=== PATIENT | male | born 1945 | race Caucasian/White ===

== ENCOUNTER → 2018-09-30 12:04 | Outpatient (CLI) | payer MEDICARE, OTHER, SELFPAY ==
--- NOTE | 2018-09-30 | DI.CT.S_ITS ---
PROCEDURE: CT LUMBAR SPINE WO CON INDICATIONS: Low back pain TECHNIQUE: Noncontrast 3 mm thick sections acquired from the T12 level to the sacrum. Sagittal and coronal reformats were constructed. For radiation dose reduction, the following was used: automated exposure control. COMPARISON: None. FINDINGS: Image quality: Excellent. Bones: Patient is status post laminectomy and posterior transpedicular fusion at L5-S1 level. There is normal bony alignment. No acute vertebral body compression fractures. No gross hardware loosening or failure. No suspicious lytic or blastic bony lesions. Central spinal caliber is of normal overall caliber. No pars defects. T12-L1: Bilateral facet arthrosis is seen. No significant canal stenosis or neural foramina narrowing. L1-L2: There is broad-based disc bulge and bilateral facet arthrosis. Mild central canal stenosis is seen. Mild left worse than right bilateral neural foraminal narrowing is seen. L2-L3: There is decreased intervertebral disc space and degenerative endplate changes. Diffuse disc bulge and bilateral facet arthrosis is noted causing moderate central canal stenosis and left worse than right bilateral neural foraminal narrowing. L3-L4: Decreased intervertebral disc space and degenerative endplate changes are seen. Broad-based disc bulge and bilateral facet arthrosis is noted causing moderate central canal stenosis and bilateral neuroforaminal narrowing. L4-L5: Decreased intervertebral disc space and degenerative endplate changes are seen. Broad-based disc bulge and bilateral facet arthrosis is seen. Moderate central canal stenosis and moderate to severe bilateral neural foraminal narrowing is noted. L5-S1: Bilateral facet arthrosis is seen. No significant canal stenosis. Left worse than right bilateral neural foraminal narrowing is seen. Possible fibrotic scar tissue in left neural foramina is seen. Soft tissues: No retroperitoneal masses or hematomas. Visualized aorta is normal in caliber. IMPRESSION: 1. Post laminectomy and posterior fusion at L5-S1 level with postsurgical changes. Suggestion of scar tissue within the left neural recess and left neural foramina causing moderate neuroforaminal narrowing. 2. No acute compression fracture or spondylolisthesis. No gross hardware complication. 3. Degenerative disc bulge and bilateral facet arthrosis throughout rest of lumbar spine causing [id number] central canal stenosis and bilateral neuroforaminal narrowing most prominent at L4-5 level as above. Dictated by: Bharathi Patrick M.D. on 09/30/2018 at 14:29 Approved by: Bharathi Patrick M.D. on 09/30/2018 at 14:32
== END ==
PROVIDERS: PCP Internal Medicine; Visit Provider Orthopaedic Surgery Orthopaedic Surgery of the Spine
DX: M54.5 Low back pain (principal); M51.36 Other intervertebral disc degeneration, lumbar region; M47.816 Spondylosis without myelopathy or radiculopathy, lumbar region; M47.817 Spondylosis without myelopathy or radiculopathy, lumbosacral region; M48.061 Spinal stenosis, lumbar region without neurogenic claudication; M48.07 Spinal stenosis, lumbosacral region; Z98.1 Arthrodesis status
CPT/HCPCS: 72131

== ENCOUNTER 2022-05-05 06:43 | Emergency (ER) | payer OTHER, SELFPAY ==
[2022-05-05] VITALS (53 sets, daily range): BP systolic 97–186; BP diastolic 52–79; PULSE 56–83; RESP 12–34; TEMP 36.8; O2SAT 91–97
--- NOTE | 2022-05-05 06:57 | DI.RAD.S_ITS ---
PROCEDURE: XR CHEST 1V INDICATIONS: chest pain TECHNIQUE: One view of the chest was acquired. COMPARISON: None. FINDINGS: Surgical changes and devices: None. Lungs and pleura: Lungs are clear. No pleural effusions or pneumothorax. Mediastinum: Mediastinal contours appear normal. Heart size is normal. Bones and chest wall: No suspicious bony lesions. Overlying soft tissues appear unremarkable. IMPRESSION: No acute cardiopulmonary disease. Dictated by: Nadia Nettles M.D. on 05/05/2022 at 7:11 Approved by: Nadia Nettles M.D. on 05/05/2022 at 7:12
[2022-05-05 07:22] LABS: Add Manual Diff / Slide Review NO; Alanine Aminotransferase 19 IU/L (<50); Albumin 4.4 g/dL (3.5-5.0); Albumin Globulin Ratio 1.2 (1.0-2.8); Alkaline Phosphatase 93 U/L (38-126); Aspartate Aminotransferase 22 IU/L (17-59); BUN Creatinine Ratio 21.2 (6-22); Basophils Absolute Auto 100 /uL (0-100); Basophils Percent Auto 0.9 % (0-2); Blood Urea Nitrogen 18 mg/dL (9-20); Calcium 9.2 mg/dL (8.4-10.2); Carbon Dioxide 22 mmol/L (22-32); Chloride 105 mmol/L (98-107); Creatine Kinase 81 U/L (55-170); Eosinophils Absolute Auto 200 /uL (0-450); Eosinophils Percent Auto 3.1 % (2-4); Estimated Glomerular Filt Rate > 60 mL/min (>60); Globulin 3.6 g/dL (1.7-4.1); Glucose 233 mg/dL (80-110); HEMOLYSIS 31 (0-50); Hematocrit 45.9 % (41-53); Hemoglobin 15.7 g/dL (13.5-17.5); Lipase 67 U/L (23-300); Lymphocytes Absolute Auto 2000 /uL (1100-4500); Lymphocytes Percent Auto 28.6 % (25-40); Mean Corpuscular HGB Conc 34.2 % (30-36); Mean Corpuscular Hemoglobin 30.3 PG (26-34); Mean Corpuscular Volume 88.6 fL (80-100); Monocytes Absolute Auto 900 /uL (0-900); Monocytes Percent Auto 12.4 % (3-14); Neutrophils Absolute Auto 3800 /uL (1500-7000); Platelet Count 256 X10^3/uL (150-400); Potassium 4.2 mmol/L (3.4-5.1); Red Blood Cell Count 5.18 X10^6/uL (4.5-5.9); Red Cell Distribution Width 14.3 % (11.6-14.8); Sodium 138 mmol/L (137-145); White Blood Cell Count 6.9 X10^3/uL (4.5-11.0)
[2022-05-05] MEDS: ASPIRIN 81 MG CHEW TAB 324 MG PO (07:29)
[2022-05-05] MEDS: NITROGLYCERIN 0.4 MG SL TAB SL ×2 (07:31→07:38)
[2022-05-05 07:34] LABS: Troponin I 0.017 ng/mL (0.01-0.034)
--- NOTE | 2022-05-05 07:38 | ED.CHESTPAIN ---
HPI - Chest Pain General Chief Complaint: Chest Pain Stated Complaint: chest pains Time Seen by Provider: 05/05/22 06:49 Source: patient Mode of arrival: Ambulatory Limitations: no limitations History of Present Illness HPI narrative: Patient is a 76-year-old male with history of coronary artery disease, with possible stent he is unsure, diabetes with diet control, polymyalgia venous insufficiency presenting today with chest discomfort. He noticed it yesterday while he was walking the dog. He felt kind in a a dull ache and some burning in the center of his chest. He was able to continue walking but it did not go away until he got home and rest. And never completely went away he sometimes feels it up into his left arm and chest. It does not go through to his back. It is definitely worse with exertion. He was unable to get comfortable last night was unable to lie flat or lay on his side was definitely worse with certain positions. He does not take medicine daily. It appears that in 2017 he was admitted for chest pain his troponin went up to 4.2 he was transferred to [facility] where he underwent a cardiac catheterization. He says he had a blockage in a vein does not know if there was a stent placed or not. He denies any nausea vomiting or sweating. Significant abdominal discomfort or right upper quadrant pain. Related Data Home Medications Medication Instructions Recorded Confirmed aspirin 81 mg tablet,delayed 81 mg PO QDAY ##0 10/21/16 03/08/19 release Allergies Allergy/AdvReac Type Severity Reaction Status Date / Time No Known Drug Allergies Allergy Verified 03/08/19 14:05 Review of Systems Review of Systems ROS Unobtainable: All systems reviewed & are unremarkable except as noted in HPI and below Patient History Medical History ACS (acute coronary syndrome) Arthritis CKD (chronic kidney disease) Diabetes Easy bruisability GERD (gastroesophageal reflux disease) Robert's deformity of left heel Herniated disc HLD (hyperlipidemia) LAFB (left anterior fascicular block) Malaria (~1963) Non-STEMI (non-ST elevated myocardial infarction) (09/06/16) Polymyalgia rheumatica Prostate cancer (~2008) Venous insufficiency Surgical History History of arthroplasty of left knee (03/06/15) History of arthroscopy of both knees History of lumbar fusion (10/24/16) History of repair of right rotator cuff Hx of Achilles tendon repair (~08/2016) Hx of prostatectomy (~2008) Platter teeth extracted Social History household members: spouse Smoking Status: Never smoker alcohol intake: former Smoking Status: Never smoker Substance Use Type: does not use Exam Initial Vital Signs Initial Vital Signs: Vital Signs Temperature 98.2 F 05/05/22 06:52 Pulse Rate 78 05/05/22 06:52 Respiratory Rate 16 05/05/22 06:52 Blood Pressure 186/79 H 05/05/22 06:52 Pulse Oximetry 97 05/05/22 06:52 Oxygen Delivery Method 05/05/22 06:52 GENERAL: Alert pleasant 76male and in no acute distress. HEENT: Head atraumatic,EOMI, pupils reactive, face symmetric, moist mucous membranes CARDIOVASCULAR: Regular rate and rhythm without murmurs, rubs or gallops. RESPIRATORY: Breath sounds equal bilaterally, no wheezes rales or rhonchi. ABDOMEN: Soft, nontender. Normoactive bowel sounds all 4 quadrants. No guarding or rebound. EXTREMITIES: Normal range of motion, no clubbing or edema. Neurovascularly intact NEUROLOGICAL: Alert and oriented x4.Normal gait and speech. SKIN: Warm, dry, no laceration, no petechiae, no rashes or lesions. Course Orders Ordered: ED Orders 05/05/22 09:00 Troponin & CK Cardiac Panel Stat 05/05/22 12:55 Trop I [Troponin I] Stat Discontinued Medications Acetaminophen (Acetaminophen 325 Mg Tablet) 975 mg PO NOW ONE Stop: 05/05/22 08:24 Last Admin: 05/05/22 08:27 Dose: 975 mg Documented By: AMAURY Aspirin (Aspirin 81 Mg Chew Tab) 324 mg PO NOW ONE Stop: 05/05/22 06:58 Last Admin: 05/05/22 07:29 Dose: 324 mg Documented By: AMAURY Heparin Sodium (Porcine) (Heparin 5,000 Unit/Ml Vial) 5,000 unit IV NOW ONE Stop: 05/05/22 10:03 Last Admin: 05/05/22 10:30 Dose: 5,000 unit Documented By: NINO Heparin Sodium/Dextrose (Heparin Drip) 25,000 unit in 500 mls @ 20 mls/hr IV CONT HECTOR; Protocol Last Titration: 05/05/22 13:40 Dose: 1,000 units/hr, 20 mls/hr Documented By: Admin: 05/05/22 10:30 Dose: 1,000 units/hr, 20 mls/hr Documented By: NINO Nitroglycerin (Nitroglycerin 0.4 Mg Sl Tab) 0.4 mg SL [id number] PRN PRN Reason: Chest Pain Last Admin: 05/05/22 07:38 Dose: 0.4 mg Documented By: Admin: 05/05/22 07:31 Dose: 0.4 mg Documented By: AMAURY Pantoprazole Sodium (Pantoprazole 40 Mg Vial) 40 mg IV NOW ONE Stop: 05/05/22 08:07 Last Admin: 05/05/22 08:19 Dose: 40 mg Documented By: AMAURY Vital Signs Vital signs: Vital Signs - 8 hr 05/05/22 09:20 05/05/22 09:30 05/05/22 09:30 Pulse Rate 61 59 L Respiratory Rate 14 13 Blood Pressure 97/52 L Pulse Oximetry 94 96 05/05/22 09:40 05/05/22 09:45 05/05/22 09:45 Pulse Rate 61 63 Respiratory Rate 14 17 Blood Pressure 118/58 L Pulse Oximetry 96 95 05/05/22 09:50 05/05/22 10:00 05/05/22 10:00 Pulse Rate 61 61 Respiratory Rate 15 15 Blood Pressure 114/59 L Pulse Oximetry 96 95 05/05/22 10:10 05/05/22 10:16 05/05/22 10:16 Pulse Rate 62 63 Respiratory Rate 15 21 Blood Pressure 132/60 Pulse Oximetry 96 95 05/05/22 10:20 05/05/22 10:30 05/05/22 10:40 Pulse Rate 62 62 58 L Respiratory Rate 16 17 14 Blood Pressure Pulse Oximetry 96 95 94 05/05/22 10:50 05/05/22 11:00 05/05/22 11:10 Pulse Rate 57 L 63 59 L Respiratory Rate 16 18 13 Blood Pressure Pulse Oximetry 95 97 95 05/05/22 11:20 05/05/22 11:30 05/05/22 11:40 Pulse Rate 57 L 56 L 56 L Respiratory Rate 12 13 13 Blood Pressure Pulse Oximetry 96 96 95 05/05/22 11:50 05/05/22 12:00 05/05/22 12:10 Pulse Rate 58 L 59 L 57 L Respiratory Rate 13 13 13 Blood Pressure Pulse Oximetry 94 96 95 05/05/22 12:20 05/05/22 12:30 05/05/22 12:40 Pulse Rate 56 L 63 67 Respiratory Rate 13 20 20 Blood Pressure Pulse Oximetry 95 96 96 05/05/22 12:50 05/05/22 12:56 05/05/22 12:56 Pulse Rate 66 65 Respiratory Rate 19 19 Blood Pressure 140/70 Pulse Oximetry 95 95 05/05/22 13:00 05/05/22 13:10 05/05/22 13:20 Pulse Rate 63 62 60 Respiratory Rate 14 15 14 Blood Pressure Pulse Oximetry 96 95 95 05/05/22 13:30 Pulse Rate 60 Respiratory Rate 13 Blood Pressure Pulse Oximetry 95 MDM - Chest Pain Lab Data 05/05/22 07:00 05/05/22 07:00 Labs: Lab Results 05/05/22 05/05/22 05/05/22 Range/Units 07:00 07:00 07:00 WBC 6.9 (4.5-11.0) X10^3/uL RBC 5.18 (4.5-5.9) X10^6/uL Hgb 15.7 (13.5-17.5) g/dL Hct 45.9 (41-53) % MCV 88.6 (80-100) fL MCH 30.3 (26-34) PG MCHC 34.2 (30-36) % RDW 14.3 (11.6-14.8) % Plt Count 256 (150-400) X10^3/uL Neut % (Auto) 55.0 (50-75) % Lymph % (Auto) 28.6 (25-40) % [place] % (Auto) 12.4 (3-14) % Eos % (Auto) 3.1 (2-4) % Baso % (Auto) 0.9 (0-2) % Neut # (Auto) 3800 (8586-3760) /uL Lymph # (Auto) 2000 (3901-2761) /uL [place] # (Auto) 900 (0-900) /uL Eos # (Auto) 200 (0-450) /uL Baso # (Auto) 100 (0-100) /uL APTT 28 (26-36) SECONDS Sodium 138 (137-145) mmol/L Potassium 4.2 (3.4-5.1) mmol/L Chloride 105 (98-107) mmol/L Carbon Dioxide 22 (22-32) mmol/L BUN 18 (9-20) mg/dL Creatinine 0.85 (0.66-1.25) mg/dL Estimated GFR > 60 (>60) mL/min BUN/Creatinine Ratio 21.2 (6-22) Glucose 233 H (80-110) mg/dL Calcium 9.2 (8.4-10.2) mg/dL Total Bilirubin 1.0 (0.2-1.3) mg/dL AST 22 (17-59) IU/L ALT 19 (<50) IU/L Alkaline Phosphatase 93 (38-126) U/L Total Creatine Kinase 81 (55-170) U/L CK-MB (CK-2) TNP CK-MB (CK-2) Rel Index TNP Troponin I 0.017 (0.01-0.034) ng/mL Total Protein 8.0 (6.3-8.2) g/dL Albumin 4.4 (3.5-5.0) g/dL Globulin 3.6 (1.7-4.1) g/dL Albumin/Globulin Ratio 1.2 (1.0-2.8) Lipase 67 (23-300) U/L SARS-CoV-2 (PCR) (Negative) 05/05/22 05/05/22 05/05/22 Range/Units 07:35 09:00 12:55 WBC (4.5-11.0) X10^3/uL RBC (4.5-5.9) X10^6/uL Hgb (13.5-17.5) g/dL Hct (41-53) % MCV (80-100) fL MCH (26-34) PG MCHC (30-36) % RDW (11.6-14.8) % Plt Count (150-400) X10^3/uL Neut % (Auto) (50-75) % Lymph % (Auto) (25-40) % [place] % (Auto) (3-14) % Eos % (Auto) (2-4) % Baso % (Auto) (0-2) % Neut # (Auto) (0646-6531) /uL Lymph # (Auto) (3114-6484) /uL [place] # (Auto) (0-900) /uL Eos # (Auto) (0-450) /uL Baso # (Auto) (0-100) /uL APTT (26-36) SECONDS Sodium (137-145) mmol/L Potassium (3.4-5.1) mmol/L Chloride (98-107) mmol/L Carbon Dioxide (22-32) mmol/L BUN (9-20) mg/dL Creatinine (0.66-1.25) mg/dL Estimated GFR (>60) mL/min BUN/Creatinine Ratio (6-22) Glucose (80-110) mg/dL Calcium (8.4-10.2) mg/dL Total Bilirubin (0.2-1.3) mg/dL AST (17-59) IU/L ALT (<50) IU/L Alkaline Phosphatase (38-126) U/L Total Creatine Kinase 79 (55-170) U/L CK-MB (CK-2) TNP CK-MB (CK-2) Rel Index TNP Troponin I 0.030 0.186 H* (0.01-0.034) ng/mL Total Protein (6.3-8.2) g/dL Albumin (3.5-5.0) g/dL Globulin (1.7-4.1) g/dL Albumin/Globulin Ratio (1.0-2.8) Lipase (23-300) U/L SARS-CoV-2 (PCR) Negative (Negative) Imaging Data Chest x-ray: Radiologist's Impression: XRay Report Signed Patient: Waqar Ramires MR#: [id number] : 1945 Acct:[id number] Age/Sex: 76 / M Date of Service: 05/05/22 Loc: ED Accession Number: [id number] ?? Procedure: XR chest 1V Ordering Provider: Vanessa Granado D.O. PROCEDURE:? XR CHEST 1V ? INDICATIONS:? chest pain ? TECHNIQUE:? One view of the chest was acquired.? ? COMPARISON:? None. ? FINDINGS:? ? Surgical changes and devices:? None.? ? Lungs and pleura:? Lungs are clear.? No pleural effusions or pneumothorax.? ? Mediastinum:? Mediastinal contours appear normal.? Heart size is normal.? ? Bones and chest wall:? No suspicious bony lesions.? Overlying soft tissues appear unremarkable.? ? IMPRESSION:? No acute cardiopulmonary disease. ? ? Dictated by: Nadia Nettles M.D. on 05/05/2022 at 7:11 ? ? ECG Data Interpretation: Normal sinus rhythm rate 60 CT interval 170 QRS 80 QTC 429 T-wave inversion noted in lead 3 possibly AVF no Q-waves no significant ST depression or elevation overall similar EKG 2. Sinus rhythm rate 79 no significant changes from priors MDM Narrative Medical decision making narrative: Patient 56-year-old male history of coronary artery disease presenting today with chest discomfort radiating towards his neck worse with exertion. Symptoms certainly concerning for acute coronary syndrome. Initial troponin is negative no obvious EKG changes. He is given 2 nitroglycerin aspirin bringing his chest discomfort to a 1. He was also given IV Protonix. Patient is chest pain-free after 2 nitroglycerin. 2nd troponin is also negative. No EKG changes. 1000- Dr. Henry, cardiology updated patient's symptoms test results. He was able to look up patient's previous heart catheterization 7 years ago he had an angioplasty of the diagonal branch. He has some LAD calcification he has 60% stenosis in the circumflex. Recommends heparin drip and transfer will need a cardiac catheterization. 1030 Dr. Robertson at [facility], updated patient's symptoms test results Cardiology recommendations and kindly accepts patient Discharge Plan Departure Patient Disposition: Xfer [facility] Clinical Impression: Unstable angina pectoris Prescriptions: No Action aspirin 81 MG tablet,delayed release (DR/EC) 81 mg PO QDAY Qty: 0 Referrals: Kelvin Barboza MD [Primary Care Provider] -
[2022-05-05 07:54] LABS: COVID19 -Nasal RAPID Negative (Negative)
[2022-05-05] MEDS: PANTOPRAZOLE 40 MG VIAL IV (08:19)
--- NOTE | 2022-05-05 08:24 | PC.NURSE ---
Chest pain down to 1/10. Reports Moderate headache. Would like tylenol. Verbal order from Dr Granado placed
[2022-05-05] MEDS: ACETAMINOPHEN 325 MG TABLET 975 MG PO (08:27)
[2022-05-05 09:17] LABS: Creatine Kinase 79 U/L (55-170)
[2022-05-05 10:19] LABS: PTT Partial Thromboplastin Tim 28 SECONDS (26-36)
[2022-05-05] MEDS: HEPARIN 5,000 UNIT/ML VIAL 5000 UNIT IV (10:30)
[2022-05-05] MEDS: HEPARIN DRIP 25,000 UNIT/500 ML IV.SOLN 20 UNIT IV (10:30)
[2022-05-05 13:32] LABS: Troponin I 0.186 ng/mL (0.01-0.034)
== END 2022-05-05 13:57 | disposition short-term general hospital (02) ==
PROVIDERS: Emergency Provider Emergency Medicine; PCP Internal Medicine
DX: I25.110 Atherosclerotic heart disease of native coronary artery with unstable angina pectoris (principal); Z20.822 Contact with and (suspected) exposure to COVID-19
CPT/HCPCS: 36415; 71045; 80053; 82550; 83690; 84484; 85025; 85730; 87635; 93005; 96365; 96366; 96375; 99284; C9803; C9113; J1644

== ENCOUNTER → 2022-05-24 09:56 | Outpatient (CLI) | payer OTHER, SELFPAY ==
--- NOTE | 2022-05-24 | DI.RAD.S_ITS ---
PROCEDURE: XR KNEE RT 3V INDICATIONS: RIGHT KNEE PAIN TECHNIQUE: 3 views of the knee were acquired. COMPARISON: CR, XR TIBIA FIBULA 2VW RT, 01/16/2015, 9:49. FINDINGS: Bones: No fractures or dislocations. No suspicious bony lesions. Severe tricompartmental knee joint degeneration secondary to osteoarthritis. Soft tissues: Small joint effusion. No suspicious soft tissue calcifications. IMPRESSION: 1. Severe osteoarthritis. 2. Small knee joint effusion. Dictated by: Nadia Nettles M.D. on 05/24/2022 at 11:12 Approved by: Nadia Nettles M.D. on 05/24/2022 at 11:13
== END ==
PROVIDERS: PCP Student in an Organized Health Care Education/Training Program; Referring Provider Student in an Organized Health Care Education/Training Program; Visit Provider Student in an Organized Health Care Education/Training Program
DX: M17.11 Unilateral primary osteoarthritis, right knee (principal); M25.461 Effusion, right knee; M25.561 Pain in right knee; G89.29 Other chronic pain
CPT/HCPCS: 73562

== ENCOUNTER → 2022-10-09 08:35 | Outpatient (CLI) | payer OTHER, SELFPAY ==
--- NOTE | 2022-10-09 08:36 | DI.RAD.S_ITS ---
PROCEDURE: XR LUMBAR SPINE 2-3V INDICATIONS: low back pain, fell 2 wks ago TECHNIQUE: 3 views of the lumbar spine were acquired. COMPARISON: [facility], , L-SPINE 2-3 VIEWS, 10/24/2016, 12:10. FINDINGS: Bones: 5 [id number] vertebrae are present. Possible minimal retrolisthesis of L1 on L2. Otherwise, normal alignment. Postsurgical changes from L5-S1 posterior spinal fusion and discectomy. The hardware appears intact. Multilevel facet arthropathy, worse at L4-5 and L5-S1. Mild multilevel disc height loss. Endplate sclerosis at L2-L3. Prominent anterior osteophyte formation. No vertebral body compression fractures. No suspicious bony lesions. Soft tissues: Overlying bowel gas pattern is normal. No suspicious soft tissue calcifications. Multiple surgical clips projecting over the pelvis. IMPRESSION: Multilevel degenerative changes of the lumbar spine status post L5-S1 posterior spinal fixation and discectomy. The hardware appears intact. No acute fractures. Dictated by: Denis Sevilla M.D. on 10/09/2022 at 10:16 Approved by: Denis Sevilla M.D. on 10/09/2022 at 10:19
[2022-10-09 09:59] LABS: Add Manual Diff / Slide Review NO; Basophils Absolute Auto 100 /uL (0-100); Basophils Percent Auto 0.9 % (0-2); Eosinophils Absolute Auto 300 /uL (0-450); Eosinophils Percent Auto 4.5 % (2-4); Hematocrit 45.1 % (41-53); Hemoglobin 15.2 g/dL (13.5-17.5); Lymphocytes Absolute Auto 1700 /uL (1100-4500); Lymphocytes Percent Auto 23.2 % (25-40); Mean Corpuscular HGB Conc 33.7 % (30-36); Mean Corpuscular Hemoglobin 30.1 PG (26-34); Mean Corpuscular Volume 89.5 fL (80-100); Monocytes Absolute Auto 700 /uL (0-900); Monocytes Percent Auto 9.7 % (3-14); Neutrophils Absolute Auto 4500 /uL (1500-7000); Neutrophils Percent Auto 61.7 % (50-75); Platelet Count 272 X10^3/uL (150-400); Red Blood Cell Count 5.04 X10^6/uL (4.5-5.9); Red Cell Distribution Width 13.9 % (11.6-14.8); White Blood Cell Count 7.3 X10^3/uL (4.5-11.0)
[2022-10-09 10:26] LABS: Alanine Aminotransferase 25 IU/L (<50); Albumin 4.1 g/dL (3.5-5.0); Albumin Globulin Ratio 1.5 (1.0-2.8); Alkaline Phosphatase 100 U/L (38-126); Aspartate Aminotransferase 26 IU/L (17-59); BUN Creatinine Ratio 22.4 (6-22); Bilirubin Total 1.3 mg/dL (0.2-1.3); Blood Urea Nitrogen 24 mg/dL (9-20); Calcium 9.1 mg/dL (8.4-10.2); Carbon Dioxide 26 mmol/L (22-32); Chloride 103 mmol/L (98-107); Cholesterol 93 mg/dL (140-199); Estimated Glomerular Filt Rate > 60 mL/min (>60); Globulin 2.7 g/dL (1.7-4.1); Glucose 141 mg/dL (80-110); HDL Cholesterol 40 mg/dL (40-60); HEMOLYSIS < 15 (0-50); LDL Cholesterol Calculated 32 mg/dL (<100); Potassium 4.6 mmol/L (3.4-5.1); Sodium 139 mmol/L (137-145); Total Protein 6.8 g/dL (6.3-8.2); Triglycerides 103 mg/dL (35-150)
[2022-10-09 10:56] LABS: TSH w/ Reflex to FT4 1.09 uIU/mL (0.47-4.68)
[2022-10-10 07:43] LABS: x Labcorp Estim. Avg Glu (eAG) 169 mg/dL (.); x Labcorp Hemoglobin A1c 7.5 % (4.8-5.6)
== END ==
PROVIDERS: PCP Family Medicine; Referring Provider Family Medicine; Visit Provider Family Medicine
DX: M54.50 Low back pain, unspecified (principal); E11.9 Type 2 diabetes mellitus without complications; M47.817 Spondylosis without myelopathy or radiculopathy, lumbosacral region; I25.10 Atherosclerotic heart disease of native coronary artery without angina pectoris; R53.83 Other fatigue; Z98.1 Arthrodesis status
CPT/HCPCS: 36415; 72100; 80053; 80061; 83036; 84443; 85025

== ENCOUNTER → 2022-10-24 13:33 | Outpatient (CLI) | payer OTHER, SELFPAY ==
--- NOTE | 2022-10-24 13:35 | DI.ECHO.S_ITS ---
[facility] +---------+ : : [address] : : : : [id number] : : : : Phone: [phone] Echocardiogram Report + + :Name: KYLE MITCHELL Study Date: 10/24/2022 Height: 69 in : :[facility] ReadingLocation: Weight: 200 lb : : Gender: Male BSA: 2.1 m2 : :: 1945 Age: 77 yrs BP: 110/65 mmHg: :Reason For Study: LOW BACK PAIN, CAD, FATIGUE : :Ordering Physician: ANGELA MAHMOODPerformed By: Jazmín Marie : :Referring: ANGELA MAHMOOD : + + Interpretation Summary The left ventricle is normal in size and wall thickness. Left ventricular systolic function appears normal without focal wall motion abnormalities. The ejection fraction is estimated to be 55-60%. Diastolic parameters suggest a relaxation abnormality of the left ventricle, consistent with probable normal filling pressures. The right ventricle is at the upper limits of normal in size. The right ventricular systolic function is normal. The right ventricular systolic pressure is estimated to be at least 26 mmHg based on an estimated right atrial pressure of 3 mm Hg. The left atrial size is normal. Right atrial size is normal. There is no significant valvular heart disease. The aortic root is normal size. Procedure: A two-dimensional transthoracic echocardiogram with color flow and Doppler was performed. The study quality was technically adequate. There is no prior echocardiogram noted for this patient. The patient was in sinus rhythm with heart rates between 59-63 bpm during the exam. Left Ventricle: The left ventricle is normal in size and wall thickness. Left ventricular systolic function appears normal without focal wall motion abnormalities. The ejection fraction is estimated to be 55-60%. Diastolic parameters suggest a relaxation abnormality of the left ventricle, consistent with probable normal filling pressures. Right Ventricle: The right ventricle is at the upper limits of normal in size. The right ventricular systolic function is normal. Atria: The left atrial size is normal. Right atrial size is normal. There is no Doppler evidence for an interatrial shunt. Mitral Valve: The mitral valve is normal in structure and function. There is trace mitral regurgitation. Aortic Valve: The aortic valve is trileaflet. The aortic valve opens well. There is no aortic valve stenosis. No aortic regurgitation is present. Tricuspid Valve: The tricuspid valve is normal in structure and function. There is mild tricuspid regurgitation. The right ventricular systolic pressure is estimated to be at least 26 mmHg based on an estimated right atrial pressure of 3 mm Hg. Pulmonic Valve: The pulmonic valve leaflets are thin and pliable; valve motion is normal. There is no pulmonic valvular regurgitation. There is no significant valvular heart disease. Great Vessels: The aortic root is normal size. The dimensions of the ascending aorta are normal. The IVC is of normal diameter and collapses greater than 50% with a sniff. This suggests a low right atrial pressure of 3 mm Hg. Pericardium/ Pleura There is no pericardial effusion. There is no pleural effusion. MMode/2D Measurements & Calculations LVIDd: 4.6 cm LVOT diam: 2.2 cm LVIDs: 3.2 cm Ao root diam: 2.9 cm FS: 30.1 % asc Aorta Diam: 3.2 cm EPSS: 0.98 cm Ao Arch Diam (Prox Trans): 2.9 cm IVSd: 0.98 cm LVPWd: 0.84 cm LV damon. diameter/BSA (cm/m^2): 2.2 LV sys. diameter/BSA (cm/m^2): 1.6 LA A2 area: 18.0 cm2 RA long axis: 5.1 cm LA A4 area: 17.2 cm2 RA area: 16.0 cm2 LA length (vol): 5.5 cm RA vol: 42.6 ml LA vol: 47.4 ml RA : 20.6 ml/m2 LA vol index: 23.0 ml/m2 IVC diam: 1.8 cm RVD1 (basal): 4.1 cm TAPSE: 1.8 cm Doppler Measurements & Calculations Ao V2 max: 137.2 cm/sec LVOT Max Sergio: 90.6 cm/sec Ao V2 mean: 107.7 cm/sec LV V1 max P.3 mmHg Ao max P.5 mmHg LV V1 VTI: 20.1 cm Ao mean P.9 mmHg MAYA(I,D): 2.6 cm2 Ao V2 VTI: 29.5 cm MAYA(V,D): 2.6 cm2 sev ratio: 0.68 MAYA indexed to BSA (cm^2/m^2): 1.3 MV E max sergio: 69.8 cm/sec TR max sergio: 238.8 cm/sec MV A max sergio: 88.2 cm/sec TR max P.8 mmHg MV E/A: 0.79 PA V2 max: 135.7 cm/sec Med Peak E' Sergio: 5.3 cm/sec PA V2 mean: 90.5 cm/sec E/E' med: 13.2 PA mean P.7 mmHg Lat Peak E' Sergio: 9.0 cm/sec PA pr(Accel): 43.0 mmHg E/E' lat: 7.7 E/e' average: 10.5 MV dec time: 0.28 sec SV(LVOT): 77.9 ml Reading Physician:03:12 PM
== END ==
PROVIDERS: PCP Family Medicine; Referring Provider Family Medicine; Visit Provider Family Medicine
DX: I07.1 Rheumatic tricuspid insufficiency (principal); I25.10 Atherosclerotic heart disease of native coronary artery without angina pectoris; E11.9 Type 2 diabetes mellitus without complications; R53.83 Other fatigue
CPT/HCPCS: 93306

== ENCOUNTER → 2023-02-05 14:31 | Outpatient (CLI) | payer OTHER, SELFPAY ==
[2023-02-05 15:53] LABS: Hemoglobin A1C% w Est Avg Glu 7.3 % (4.0-6.0)
== END ==
PROVIDERS: PCP Family Medicine; Referring Provider Family Medicine; Visit Provider Family Medicine
DX: E11.9 Type 2 diabetes mellitus without complications (principal)
CPT/HCPCS: 36415; 83036

== ENCOUNTER → 2023-08-12 13:35 | Outpatient (CLI) | payer OTHER, SELFPAY ==
[2023-08-12 14:13] LABS: Hemoglobin A1C% w Est Avg Glu 6.6 % (4.0-6.0)
[2023-08-12 14:27] LABS: BUN Creatinine Ratio 17.6 (6-22); Blood Urea Nitrogen 19 mg/dL (9-20); Calcium 9.6 mg/dL (8.4-10.2); Carbon Dioxide 23 mmol/L (22-32); Chloride 107 mmol/L (98-107); Estimated Glomerular Filt Rate > 60 mL/min (>60); Glucose 141 mg/dL (80-110); HEMOLYSIS < 15 (0-50); Potassium 4.8 mmol/L (3.4-5.1); Sodium 140 mmol/L (137-145)
[2023-08-12 17:46] LABS: Hep C Virus Ab w/Reflex Quant NEGATIVE s/c (NEGATIVE)
== END ==
PROVIDERS: PCP Family Medicine; Referring Provider Family Medicine; Visit Provider Family Medicine
DX: Z00.00 Encounter for general adult medical examination without abnormal findings (principal); E11.9 Type 2 diabetes mellitus without complications; I25.10 Atherosclerotic heart disease of native coronary artery without angina pectoris
CPT/HCPCS: 36415; 80048; 83036; 86803

== ENCOUNTER → 2024-02-10 13:23 | Outpatient (CLI) | payer MEDICARE, SELFPAY ==
[2024-02-10 15:14] LABS: BUN Creatinine Ratio 13.4 (6-22); Blood Urea Nitrogen 15 mg/dL (9-20); Calcium 9.3 mg/dL (8.4-10.2); Carbon Dioxide 25 mmol/L (22-32); Chloride 105 mmol/L (98-107); Cholesterol 100 mg/dL (140-199); Estimated Glomerular Filt Rate > 60 mL/min (>60); Glucose 222 mg/dL (80-110); HDL Cholesterol 33 mg/dL (40-60); HEMOLYSIS < 15 (0-50); LDL Cholesterol Calculated 32 mg/dL (<100); Potassium 4.9 mmol/L (3.4-5.1); Sodium 139 mmol/L (137-145); Triglycerides 174 mg/dL (35-150)
[2024-02-10 15:15] LABS: Hemoglobin A1C% w Est Avg Glu 7.3 % (4.0-6.0)
== END ==
PROVIDERS: PCP Family Medicine; Referring Provider Family Medicine; Visit Provider Family Medicine
DX: E11.9 Type 2 diabetes mellitus without complications (principal); I25.10 Atherosclerotic heart disease of native coronary artery without angina pectoris; E66.9 Obesity, unspecified
CPT/HCPCS: 36415; 80048; 80061; 83036

== ENCOUNTER → 2024-08-27 11:26 | Outpatient (CLI) | payer MEDICARE, SELFPAY ==
[2024-08-27 13:05] LABS: Blood Urea Nitrogen 20 mg/dL (9-20); Calcium 9.2 mg/dL (8.4-10.2); Carbon Dioxide 20 mmol/L (22-32); Chloride 107 mmol/L (98-107); Estimated Glomerular Filt Rate > 60 mL/min (>60); Glucose 166 mg/dL (70-99); HEMOLYSIS 23 (0-50); Potassium 4.6 mmol/L (3.4-5.1); Sodium 140 mmol/L (137-145)
[2024-08-27 13:33] LABS: Hemoglobin A1C% w Est Avg Glu 6.9 % (4.0-6.0)
== END ==
PROVIDERS: PCP Family Medicine; Referring Provider Family Medicine; Visit Provider Family Medicine
DX: E11.9 Type 2 diabetes mellitus without complications (principal); I25.10 Atherosclerotic heart disease of native coronary artery without angina pectoris
CPT/HCPCS: 36415; 80048; 83036

== ENCOUNTER → 2025-03-08 14:20 | Outpatient (CLI) | payer MEDICARE, SELFPAY ==
[2025-03-08 15:15] LABS: Hemoglobin A1C% w Est Avg Glu 7.4 % (4.0-6.0)
[2025-03-08 15:33] LABS: Alanine Aminotransferase 18 IU/L (<50); Albumin 4.2 g/dL (3.5-5.0); Albumin Globulin Ratio 1.6 (1.0-2.8); Alkaline Phosphatase 62 U/L (38-126); Blood Urea Nitrogen 18 mg/dL (9-20); Calcium 9.2 mg/dL (8.4-10.2); Carbon Dioxide 24 mmol/L (22-32); Chloride 103 mmol/L (98-107); Cholesterol 103 mg/dL (140-199); Estimated Glomerular Filt Rate 57 mL/min (>60); Globulin 2.6 g/dL (1.7-4.1); Glucose 224 mg/dL (70-99); HDL Cholesterol 37 mg/dL (40-60); HEMOLYSIS 28 (0-50); Potassium 4.7 mmol/L (3.4-5.1); Sodium 139 mmol/L (137-145); Total Protein 6.8 g/dL (6.3-8.2); Triglycerides 175 mg/dL (35-150)
== END ==
PROVIDERS: PCP Family Medicine; Referring Provider Family Medicine; Visit Provider Family Medicine
DX: Z00.00 Encounter for general adult medical examination without abnormal findings (principal); E11.42 Type 2 diabetes mellitus with diabetic polyneuropathy; I25.10 Atherosclerotic heart disease of native coronary artery without angina pectoris
CPT/HCPCS: 36415; 80053; 80061; 83036